=== PATIENT | male | born 1985 | race Caucasian/White ===

== ENCOUNTER → 2017-11-24 09:56 | Outpatient (CLI) | payer OTHER, SELFPAY ==
--- NOTE | 2017-11-24 11:39 | PM.TREADMILL ---
Cardiac Stress Test Report Referral & Results Date Patient Seen: 11/24/17 Time Patient Seen: 11:39 Requesting provider: King Thomas Indication: Family history, chest pain Rest ECG: Unremarkable Procedure Note: Today following both written and verbal informed consent, the patient was exercised according to a standard Ramses protocol. The patient exercised for a total of 10 min 19 sec achieving a maximum heart rate of 169. Patient's maximum systolic blood pressure was 150 to. This was an estimated 12.8 MET's. Patient's treadmill was stopped because of ongoing left-sided chest pain that was radiating into his left arm as well as having reached the targets in heart rate and blood pressure No ST-T segment changes were identified at all. Normal heart rate and blood pressure response to exercise Functional aerobic impairment rated 25% on the active scale No dysrhythmias were identified Impression: No evidence of ischemia as a cause of patient's symptoms Clinical correlation suggested Please note: Actual ECG tracings can be found in the PACS system.
== END ==
PROVIDERS: Visit Provider General Practice
DX: R07.9 Chest pain, unspecified (principal); Z82.49 Family history of ischemic heart disease and other diseases of the circulatory system
CPT/HCPCS: 93016; 93017; 93018

== ENCOUNTER → 2018-08-15 13:30 | Outpatient (CLI) | payer OTHER, SELFPAY ==
[2018-08-15 14:26] LABS: Blood Urea Nitrogen 12 mg/dL (9-20); Calcium 9.7 mg/dL (8.4-10.2); Carbon Dioxide 25 mmol/L (22-32); Chloride 103 mmol/L (98-107); Cholesterol 181 mg/dL (140-199); Estimated Glomerular Filt Rate > 60.0 mL/min (>60); Glucose 85 mg/dL (70-100); HDL Cholesterol 33 mg/dL (40-60); HEMOLYSIS < 15 (0-50); LDL Cholesterol Calculated 84 mg/dL (<100); Potassium 4.1 mmol/L (3.4-5.1); Sodium 139 mmol/L (137-145); Triglycerides 318 mg/dL (35-150)
== END ==
PROVIDERS: Visit Provider Internal Medicine Cardiovascular Disease
DX: Z00.00 Encounter for general adult medical examination without abnormal findings (principal)
CPT/HCPCS: 36415; 80048; 80061

== ENCOUNTER 2018-08-22 12:36 | Day surgery (SDC) | payer OTHER, SELFPAY ==
--- NOTE | 2018-08-22 | PATH_ITS ---
[facility] Accession Number: [id number] . 01 Material submitted: . small bowel - SMALL BOWEL BIOPSIES . 01 Clinical history: . A: SMALL BOWEL BIOPSIES FOR CELIAC . 02 Diagnosis: Small Bowel, Biopsies: Small bowel mucosa with no diagnostic abnormality. Negative for active inflammation, features of sprue, dysplasia or malignancy. I/08/24/2018 . 02 Electronically signed: . Javier Moon MD, PhD, Pathologist NPI- [id number] . 01 Gross description: . SMALL BOWEL BIOPSIES: Received in formalin are 2 fragment(s) of grayson, soft tissue measuring 0.3 x 0.3 x 0.2 cm to 0.3 x 0.2 x 0.2 cm submitted entirely in 1 cassette(s) /CKI /CKI . 02 Pathologist provided ICD-10: R19.4 . 02 CPT . 845342 Performed at: 01 [facility] [address] [place] [address], [place], [place] [id number] MD Cassius Mckee MD Phone: [phone] Performed at: 02 [facility] [address] [place], [place] [id number] MD Selena Valdez MD Phone: [phone]
[2018-08-22 13:08] VITALS: BP 137/87; PULSE 76; RESP 16; TEMP 36.8; O2SAT 99; BMI 33.3
[2018-08-22] MEDS: SODIUM CHLORIDE 0.9% 1,000 ML 42 ML IV (13:24)
[2018-08-22 15:50] VITALS: BP 108/56; PULSE 78; RESP 12; TEMP 36.6; O2SAT 96
--- NOTE | 2018-08-22 15:50 | PM.PREOP ---
Pre-operative Note Interval Note History & Physical reviewed/Exam performed by Physician: Yes Changes to H&P: No ASA Class (for procedural sedation): I
--- NOTE | 2018-08-22 15:51 | PM.OP.ENDO ---
Operative Date/Time/Diagnoses Date of procedure: 08/22/18 Time of procedure: 15:51 Pre-op diagnosis: See indication and findings Procedure & Clinicians Study performed: EGD Same procedure as scheduled: Yes Indications: Hematemesis and dyspepsia Surgeon: Naila Llanos Procedure Notes Procedure in detail: After informed consent was obtained patient was placed in left lateral decubitus position. The video upper scope was placed into the oropharynx and with the patient's health swallowed into the esophagus. The esophagus stomach duodenum were carefully examined. On withdrawal retroflexed view of the GE junction was performed. The patient tolerated the procedure well. Blood loss none Complications none Medications MAC Findings 1. Normal esophagus 2. Completely normal stomach both proximally and distally no evidence for hematin flex present 3. Normal duodenal bulb and sweep. Biopsies taken to rule out celiac Patient is currently on omeprazole for his reflux and he merely stay on it at this time. As long as he has no further recurrence of hematemesis no further workup was necessary.
[2018-08-22 15:55] VITALS: BP 124/91; PULSE 76; RESP 11
[2018-08-22 16:00] VITALS: BP 124/80; PULSE 74; RESP 13; O2SAT 96
[2018-08-22 16:06] VITALS: BP 121/79; PULSE 72; RESP 14; TEMP 36.7; O2SAT 96
[2018-08-22 16:18] VITALS: BP 130/87; PULSE 70; RESP 14; TEMP 37; O2SAT 97
== END 2018-08-22 16:37 | disposition home or self-care (01) ==
PROVIDERS: PCP Internal Medicine; Visit Provider Internal Medicine Gastroenterology
PROC: 0DJ08ZZ Inspection of Upper Intestinal Tract, Via Natural or Artificial Opening Endoscopic (ICD-10-PCS; CPT 43235; principal; 2018-08-22 15:30)
DX: K92.0 Hematemesis (principal); R19.7 Diarrhea, unspecified; K21.9 Gastro-esophageal reflux disease without esophagitis
CPT/HCPCS: 43239; 88305; J2704; J3010

== ENCOUNTER 2021-08-30 09:41 | Emergency (ER) | payer OTHER, SELFPAY ==
[2021-08-30 10:08] VITALS: BP 140/88; PULSE 73; RESP 18; TEMP 36.6; O2SAT 97; BMI 34.7
[2021-08-30 12:11] LABS: COVID19 -Nasal RAPID Negative (Negative)
--- NOTE | 2021-08-31 19:24 | ED.URI ---
HPI - URI/Sore Throat <Minda Rowland PA-C - Last Filed: 08/31/21 19:30> General Chief Complaint: Upper Respiratory Symptoms Stated Complaint: Swollen throat- hard to swallow. Time Seen by Provider: 08/30/21 13:32 Source: patient Mode of arrival: Ambulatory History of Present Illness HPI Narrative: 36-year-old male with no reported past medical history presents to the ED with 3 days of sore throat. Patient states that his throat was somewhat scratchy over the last 2 days but this morning he woke up feeling like his uvula was swollen, bright red, painful to swallow. Patient denies throat tightness or trouble breathing. Patient does endorse a subjective fever. Denies chills, cough, chest pain, shortness of breath, nausea, vomiting, abdominal pain, dysuria, lightheadedness, dizziness, syncope. Related Data Previous Rx's Medication Instructions Recorded hydrocodone 5 mg-acetaminophen 325 1 tab PO QIDP PRN #10 tab 03/25/16 mg tablet ([place]) ibuprofen 800 mg tablet 800 mg PO TIDP PRN #20 tab 03/25/16 penicillin V potassium 500 mg 500 mg PO BID 10 Days #20 tab 08/30/21 tablet Allergies Allergy/AdvReac Type Severity Reaction Status Date / Time No Known Allergies Allergy Uncoded 07/19/17 12:40 Review of Systems <Minda Rowland PA-C - Last Filed: 08/31/21 19:30> Review of Systems ROS Unobtainable: All systems reviewed & are unremarkable except as noted in HPI and below Constitutional Constitutional: Denies chills, Denies fatigue, Reports fever(s), Denies frequent falls, Denies lethargy and Denies weakness Eyes Eyes: Denies change in vision, Denies eye discharge, Denies irritation and Denies loss of vision ENT Ears, Nose, Mouth, and Throat: Denies change in voice, Denies dizziness, Denies neck pain, Reports odynophagia, Reports sore throat and Denies throat swelling Cardiovascular Cardiovascular: Denies chest pain, Denies irregular heart rhythm, Denies lightheadedness, Denies palpitations, Denies dyspnea, Denies dyspnea on exertion and Denies orthopnea Respiratory Respiratory: Denies cough, Denies dyspnea, Denies dyspnea on exertion and Denies wheezing Gastrointestinal Gastrointestinal: Denies abdominal pain, Denies change in bowel habits, Denies diarrhea, Denies nausea, Reports odynophagia and Denies vomiting Genitourinary Genitourinary: Denies hematuria, Denies flank pain, Denies urinary incontinence and Denies urinary urgency Musculoskeletal Musculoskeletal: Denies back pain, Denies muscle weakness, Denies neck pain, Denies numbness and Denies tingling Integumentary/Breasts Skin/Breast: Denies pruritus, Denies erythema, Denies rash and Denies wounds Neurologic Neurologic: Denies behavioral changes, Denies confusion, Denies dizziness, Denies frequent falls, Denies loss of vision, Denies numbness, Denies tingling and Denies weakness Psychiatric Psychiatric: Denies anxiety, Denies behavioral changes, Denies confusion, Denies depression, Denies homicidal ideation and Denies suicidal ideation Endocrine Endocrine: Denies fatigue, Denies flushing and Denies palpitations Hematologic/Lymphatic Hematologic/Lymphatic: Denies easy bruising Allergic/Immunologic Allergic/Immunologic: Denies urticaria, Denies throat swelling and Denies wheezing Patient History <Minda Rowland PA-C - Last Filed: 08/31/21 19:30> Social History household members: spouse Substance Use Type: does not use Exam <KAREN Montes Last Filed: 08/31/21 19:30> Narrative Exam Narrative: Const General:?cooperative, healthy appearing and comfortable [facility] Head:?normal to inspection Ears:?hearing grossly normal bilaterally Nose:?external nose normal Face and sinus:?normal facial exam and sinuses nontender Mouth:?oral mucosae normal Throat:? Posterior oropharynx appears erythematous, with mild exudates. Airway is patent. Eyes General:?appearance normal, both eyes and all related structures Neck Neck:?normal visual inspection and no lymphadenopathy noted Resp Effort & Inspection:?normal respiratory effort Auscultation:?clear to auscultation bilaterally Cardio Rate:?regular rate Rhythm:?regular rhythm Neuro General:?patient alert, patient awake and patient oriented x3 Initial Vital Signs Initial Vital Signs: Vital Signs Temperature 97.9 F 08/30/21 10:08 Pulse Rate 73 08/30/21 10:08 Respiratory Rate 18 08/30/21 10:08 Blood Pressure 140/88 08/30/21 10:08 Pulse Oximetry 97 08/30/21 10:08 <Sarah Cruz MD - Last Filed: 09/07/21 06:27> Initial Vital Signs Initial Vital Signs: Vital Signs Temperature 97.9 F 08/30/21 10:08 Pulse Rate 73 08/30/21 10:08 Respiratory Rate 18 08/30/21 10:08 Blood Pressure 140/88 08/30/21 10:08 Pulse Oximetry 97 08/30/21 10:08 MDM - URI/Sore Throat <Minda Rowland PA-C - Last Filed: 08/31/21 19:30> Lab Data Lab results narrative: Positive strep Labs: Lab Results 08/30/21 Range/Units 10:15 SARS-CoV-2 (PCR) Negative (Negative) Point of Care Testing Rapid Strep A Positive MDM Narrative Medical decision making narrative: 36-year-old male with no reported past medical history presents to the ED with 3 days of sore throat. Concern for strep pharyngitis versus viral pharyngitis versus other viral syndrome. Strep swab was positive in the ED. prescribed penicillin. ED return precautions discussed with patient. Patient verbalized understanding. <Sarah Cruz MD - Last Filed: 09/07/21 06:27> Lab Data Labs: Lab Results 08/30/21 Range/Units 10:15 SARS-CoV-2 (PCR) Negative (Negative) Point of Care Testing Rapid Strep A Positive Discharge Plan Departure Patient Disposition: Home Clinical Impression: Acute streptococcal pharyngitis Instructions: DI for Strep Throat Activity Restrictions/Additional Instructions: You were evaluated in the ED today for throat pain. You tested positive for strep throat, which will need to be treated with antibiotics. Your antibiotic was called in to [facility] [place]. Please complete the full course of antibiotics. Return to the ED if your symptoms worsen, you have trouble breathing. Prescriptions: New penicillin V potassium 500 mg tablet 500 mg PO BID 10 Days Qty: 20 0RF No Action ibuprofen 800 MG tablet 800 mg PO TIDP PRNQty: 20 0RF hydrocodone-acetaminophen [[place]] 5 MG/325 MG tablet 1 tab PO QIDP PRNQty: 10 0RF <Sarah Cruz MD - Last Filed: 09/07/21 06:27> Cosign ED Attending Madyature Attestation: I was immediately available in the department for consultation throughout this patient's visit. I agree with documentation as above. Sarah Cruz MD
== END 2021-08-30 13:55 | disposition home or self-care (01) ==
PROVIDERS: Emergency Medicine; Emergency Provider Student in an Organized Health Care Education/Training Program
DX: J02.0 Streptococcal pharyngitis (principal); Z20.822 Contact with and (suspected) exposure to COVID-19
CPT/HCPCS: 87635; 87880; 99282; C9803

== ENCOUNTER → 2023-08-07 17:17 | Outpatient (CLI) | payer OTHER, SELFPAY ==
--- NOTE | 2023-08-07 17:19 | DI.US.S_ITS ---
PROCEDURE: US EXTREMITY NONVASC LOWER LT INDICATIONS: Localized swelling, mass and lump lt calf TECHNIQUE: Real-time scanning was performed of the left medial calf , with image documentation. COMPARISON: None. FINDINGS: Complex fluid collection between the muscle fascia with surrounding edema and increased peripheral vascularity measuring 5.7 x 1.7 x 0.8 cm. IMPRESSION: Complex fluid collection measuring 5.7 x 1.7 x 0.8 cm between the fascia with surrounding edema may represent a hematoma is most compatible with a small hematoma in the setting of recent fall. Dictated by: Nathen Villafuerte M.D. on 08/08/2023 at 10:58 Approved by: Nathen Villafuerte M.D. on 08/08/2023 at 11:25
== END ==
DX: R22.40 Localized swelling, mass and lump, unspecified lower limb (principal)
CPT/HCPCS: 76882